=== PATIENT | male | born 1970 | race Caucasian/White ===

== ENCOUNTER 2021-07-09 10:23 | Day surgery (SDC) | payer BC ==
[~2021-07-09 10:23] MED LIST: Lactated Ringers 1,000 ML IV SCH; Lidocaine 2% 5 ML SDV ONE; Ondansetron 4 MG/2 ML SDV ONE; fentaNYL 100 MCG/2 ML SDV ONE; propofoL 100 ML ONE
--- NOTE | 2021-07-09 11:32 | PCM.PREANE ---
Preanesthetic Assessment - Anesthesia/Transfusion/Family Hx Anesthesia History: Prior Anesthesia Without Reaction Transfusion History: No Prior Transfusion(s) - Review of Systems General: No Symptoms Pulmonary: No Symptoms Cardiovascular: No Symptoms Gastrointestinal: No Symptoms Neurological: No Symptoms Other: Reports: None - Physical Assessment NPO Status Date: 07/09/21 NPO Status Time: 00:00 Vital Signs: Last Vital Signs Temp 97.7 F 07/09/21 10:48 Pulse 66 07/09/21 10:48 Resp 15 07/09/21 10:48 BP 173/90 H 07/09/21 10:48 Pulse Ox 95 07/09/21 10:48 Height: 6 ft 1 in Weight: 196 lb ASA Class: 2 Mental Status: Alert & Oriented x3 Airway Class: Mallampati = 2 Dentition: Reports: Normal Dentition ROM/Head Extension: Full Lungs: Clear to Auscultation, Normal Respiratory Effort Cardiovascular: Regular Rate, Regular Rhythm - Allergies Allergies/Adverse Reactions: Allergies Allergy/AdvReac Type Severity Reaction Status Date / Time No Known Allergies Allergy Verified 07/04/21 13:48 - Acknowledgements Anesthesia Type Planned: General Anesthesia Pt an Appropriate Candidate for the Planned Anesthesia: Yes Alternatives and Risks of Anesthesia Discussed w Pt/Guardian: Yes Pt/Guardian Understands and Agrees with Anesthesia Plan: Yes PreAnesthesia Questionnaire HEENT History: Reports: Other (See Below) Other HEENT History: wears glasses, hx of fx nose Cardiovascular History: Reports: High Cholesterol Respiratory History: Reports: None Gastrointestinal History: Reports: GERD Genitourinary History: Reports: None Musculoskeletal History: Reports: Fracture Other Musculoskeletal History: hx of fx fingers Neurological History: Reports: None Psychiatric History: Reports: Anxiety Endocrine/Metabolic History: Reports: None Hematologic History: Reports: None Immunologic History: Reports: None Oncologic (Cancer) History: Reports: None Dermatologic History: Reports: None - Past Surgical History Head Surgeries/Procedures: Reports: None HEENT Surgical History: Reports: None Cardiovascular Surgical History: Reports: None Respiratory Surgical History: Reports: None GI Surgical History: Reports: None Male Surgical History: Reports: None Endocrine Surgical History: Reports: None Neurological Surgical History: Reports: None Musculoskeletal Surgical History: Reports: Arthroscopic Knee Other Musculoskeletal Surgeries/Procedures:: right ACL repair- has 1 screw - SUBSTANCE USE Tobacco Use Status *Q: Current Every Day Tobacco User Tobacco Use Within Last Twelve Months: Vaping Recreational Drug Use History: No - HOME MEDS Home Medications: Home Meds Famotidine 20 mg PO BID 07/04/21 [History] Venlafaxine HCl [Venlafaxine HCl ER] 75 mg PO DAILY 07/04/21 [History] atorvaSTATin Calcium [Atorvastatin Calcium] 40 mg PO DAILY 07/04/21 [History] - CURRENT (IN HOUSE) MEDS Current Meds: Current Medications Lactated Ringer's (Ringers, Lactated) 1,000 mls @ 125 mls/hr IV ASDIRECTED [facility] Last Admin: 07/09/21 11:00 Dose: 125 mls/hr Documented by: Discontinued Medications Fentanyl (Fentanyl 100 Mcg/2 Ml Sdv) Confirm Administered Dose 100 mcg .ROUTE .STK-MED ONE Stop: 07/09/21 10:10 Propofol (Diprivan 100 Ml) Confirm Administered Dose 100 mls @ as directed .ROUTE .STK-MED ONE Stop: 07/09/21 10:10 Lidocaine (Lidocaine 2% 5 Ml Sdv) Confirm Administered Dose 5 ml .ROUTE .STK-MED ONE Stop: 07/09/21 10:10 Ondansetron HCl (Ondansetron 4 Mg/2 Ml Sdv) Confirm Administered Dose 4 mg .ROUTE .STK-MED ONE Stop: 07/09/21 10:10
[2021-07-09] MEDS ORDERED: Dexamethasone 4 MG/ML 5 ML MDV ONE (12:43)
[2021-07-09] MEDS ORDERED: Ondansetron 4 MG/2 ML SDV ONE (12:43)
--- NOTE | 2021-07-09 13:14 | PCM48HPAN ---
Post Anesthesia Note - EVALUATION WITHIN 48HRS OF ANESTHETIC Vital Signs in Normal Range: Yes Patient Participated in Evaluation: Yes Respiratory Function Stable: Yes Airway Patent: Yes Cardiovascular Function Stable: Yes Hydration Status Stable: Yes Pain Control Satisfactory: Yes Nausea and Vomiting Control Satisfactory: Yes Mental Status Recovered: Yes Vital Signs: Last Vital Signs Temp 97.7 F 07/09/21 10:48 Pulse 66 07/09/21 10:48 Resp 15 07/09/21 10:48 BP 173/90 H 07/09/21 10:48 Pulse Ox 95 07/09/21 10:48
--- NOTE | 2021-07-09 13:14 | PCM.POSTAN ---
POST ANESTHESIA ASSESSMENT - MENTAL STATUS Mental Status: Alert, Oriented - VITAL SIGNS Vital Signs: Last Vital Signs Temp 97.7 F 07/09/21 10:48 Pulse 66 07/09/21 10:48 Resp 15 07/09/21 10:48 BP 173/90 H 07/09/21 10:48 Pulse Ox 95 07/09/21 10:48 - RESPIRATORY Respiratory Status: Respiratory Rate WNL, Airway Patent, O2 Saturation Stable - CARDIOVASCULAR CV Status: Pulse Rate WNL, Blood Pressure Stable - GASTROINTESTINAL GI Status: No Symptoms - POST OP HYDRATION Hydration Status: Adequate & Stable
--- NOTE | 2021-07-09 13:15 | PCM.OPNOTE ---
- General Post-Op/Procedure Note Date of Surgery/Procedure: 07/09/21 Operative Procedure(s): EGD with biopsies. Colonscopy with biopsies and polypectomies Findings: Gastritis Esophagitis colon polyps Submucosal mass in cecum dictation number [id number] Pre Op Diagnosis: abdominal pain. screening colonoscopy Post-Op Diagnosis: Gastritis. Esophagitis. colon polyps. Submucosal mass in cecum Primary Surgeon: Elkin Barahona Complications: None Condition: Good
--- NOTE | 2021-07-10 08:13 | OR ---
SURGEON: LUIS GASTELUM MD DATE OF PROCEDURE: 07/09/2021 PREOPERATIVE DIAGNOSES: Abdominal pain and cramping along with nausea and vomiting. POSTOPERATIVE DIAGNOSES: 1. Gastritis. 2. Esophagitis. 3. Colon polyps. 4. Submucosal mass in the cecum at the appendix orifice, could potentially be a lipoma. PROCEDURES PERFORMED: 1. Esophagogastroduodenoscopy with biopsies. 2. Colonoscopy with biopsies and polypectomy. PRIMARY SURGEON: Luis Gastelum MD ANESTHESIA: With anesthesiologist. EXTENT OF EGD: To the duodenum. EXTENT OF COLONOSCOPY: To the terminal ileum. BOWEL PREP: Very good. LIMITATIONS: None. REASON FOR PROCEDURE: The patient is a pleasant 51-year-old gentleman. He has never had a colonoscopy before. He denies any family history of colon cancer. Denies any blood in the stool. The patient also says he has flare-ups of abdominal pain over the last couple of years. He will get loose stools, abdominal cramping along with bloating. He says he was diagnosed with gluten intolerance in the past. He has taken some Pepcid and says that seems to help. The patient also has some nausea and emesis. PROCEDURE IN DETAIL: Physical examination was performed. The major risks and benefits associated with the procedure were explained to the patient in detail. The patient verbalized understanding and agreement of the same. The patient was then connected to the appropriate monitoring device and IV started. EKG, pulse, pulse oximetry, blood pressure, and capnography were monitored throughout the entire procedure. Continuous oxygen and sedation were provided by the anesthesiologist. The patient was placed in left lateral decubitus position. Sedation was began. After adequate sedation was achieved, an upper endoscope was advanced under direct visualization without difficulty in the upper GI tract. The anatomy and mucosa of the esophagus, GE junction, stomach, pylorus, and duodenum were all inspected. Duodenum appeared normal. We did do biopsies in the duodenum because of history of gluten intolerance. The scope was brought back to the stomach. Both retro and antegrade views of the stomach were done. The patient did have looked like some old punctated areas of bleeding. Nothing was actively bleeding though mainly in the antrum and some gastritis mainly again in the stomach. Biopsies were done of the antrum and pylorus area to check for H pylori. Scope was brought to the GE junction. GE junction was approximately 43 cm from the incisors. The patient had irregular GE junction what looks like maybe some esophagitis that looks like it is on the healing aspect. Did do several 4-quadrant biopsies of this area. Scope was brought into the stomach. Stomach was deinsufflated. Scope was brought up to the GE junction. Good hemostasis. Esophagus appeared normal and the scope was removed. Gloves and scopes were changed. Now, rectal exam was done. No rectal masses or polyps were felt. Now, a well- lubricated Olympus colonoscope was inserted in the rectum, advanced under direct visualization to the level of the cecum. The cecum was identified by both visual and anatomic landmarks. The patient did have somewhat torturous sigmoid that required a little bit of sigmoid pressure, but we were able to intubate the cecum. The cecum was intubated. The patient did have what looked to be submucosal mass right where the appendix orifice would be. Potentially some type of lipoma. The mucosa appeared normal, we did do multiple biopsies. Terminal ileum was inspected. This appeared normal. Did biopsies. Scope was withdrawn. The patient does have minimal liquid stool, which was suctioned and irrigated out for a good look at the mucosa. The patient did have a larger polyp that was on a nice stalk at about 20 cm. This was removed with hot snare polypectomy. The polyp was too large to suction, so it was taken out. The scope was readvanced to the polypectomy site. Mucosal edges were then reapproximated. The scope was continued to be withdrawn. The patient had a small polyp in the rectum. This was removed with a cold biopsy polypectomy. Good hemostasis. Scope was then completely removed and the procedure was terminated. ENDOSCOPIC DIAGNOSES: 1. Gastritis. 2. Esophagitis. 3. Colon polyps. 4. Submucosal mass in the cecum. RECOMMENDATIONS: The patient will follow up in clinic to go over his pathology. Although, the patient should consider switching to a PPI, that might help with his esophagitis and gastritis. Followup colonoscopy will depend on pathology. May consider potentially a CT scan to further evaluate that submucosal lesion in the cecum. IWONA / LORAINE /[id number]
== END 2021-07-09 14:00 | disposition home or self-care (01) ==
LOC: MW.SDS 10:23
PROVIDERS: ATTEND Surgery
DX: D12.8 Benign neoplasm of rectum (principal); D12.6 Benign neoplasm of colon, unspecified; D17.5 Benign lipomatous neoplasm of intra-abdominal organs; K29.50 Unspecified chronic gastritis without bleeding; K20.90 Esophagitis, unspecified without bleeding; E78.5 Hyperlipidemia, unspecified; E78.00 Pure hypercholesterolemia, unspecified; F17.210 Nicotine dependence, cigarettes, uncomplicated; Z79.899 Other long term (current) drug therapy
CPT/HCPCS: 43239; 45380; 45385; 88305; 88342; J1100; J2405; J2704; J3010; J7120; 00813

== ENCOUNTER 2021-10-29 06:43 | Day surgery (SDC) | payer BC ==
[~2021-10-29 06:43] MED LIST changes: +Acetaminophen 1,000 MG in Premix Bag 1 BAG IV PRN; -Lactated Ringers 1,000 ML IV SCH; -Lidocaine 2% 5 ML SDV ONE; -Ondansetron 4 MG/2 ML SDV ONE; +Pregabalin 75 MG Cap ONE; -fentaNYL 100 MCG/2 ML SDV ONE; -propofoL 100 ML ONE
--- NOTE | 2021-10-29 07:28 | PCM.PREANE ---
Preanesthetic Assessment - Anesthesia/Transfusion/Family Hx Anesthesia History: Prior Anesthesia Without Reaction Transfusion History: No Prior Transfusion(s) - Review of Systems General: No Symptoms Pulmonary: No Symptoms Cardiovascular: No Symptoms Gastrointestinal: No Symptoms Neurological: No Symptoms Other: Reports: None - Physical Assessment NPO Status Date: 10/29/21 NPO Status Time: 00:00 Height: 6 ft 1 in Weight: 204 lb ASA Class: 2 Mental Status: Alert & Oriented x3 Airway Class: Mallampati = 1 Dentition: Reports: Normal Dentition ROM/Head Extension: Full Lungs: Clear to Auscultation, Normal Respiratory Effort Cardiovascular: Regular Rate, Regular Rhythm - Allergies Allergies/Adverse Reactions: Allergies Allergy/AdvReac Type Severity Reaction Status Date / Time No Known Allergies Allergy Verified 10/28/21 09:47 - Acknowledgements Anesthesia Type Planned: General Anesthesia Pt an Appropriate Candidate for the Planned Anesthesia: Yes Alternatives and Risks of Anesthesia Discussed w Pt/Guardian: Yes Pt/Guardian Understands and Agrees with Anesthesia Plan: Yes PreAnesthesia Questionnaire HEENT History: Reports: Other (See Below) Other HEENT History: wears glasses, hx of fx nose Cardiovascular History: Reports: High Cholesterol, Hypertension Respiratory History: Reports: None Gastrointestinal History: Reports: Colon Polyp Genitourinary History: Reports: None Musculoskeletal History: Reports: Fracture Other Musculoskeletal History: hx of fx fingers Neurological History: Reports: None Psychiatric History: Reports: Anxiety Endocrine/Metabolic History: Reports: None Hematologic History: Reports: None Immunologic History: Reports: None Oncologic (Cancer) History: Reports: None Dermatologic History: Reports: None - Past Surgical History Head Surgeries/Procedures: Reports: None HEENT Surgical History: Reports: None Cardiovascular Surgical History: Reports: None Respiratory Surgical History: Reports: None GI Surgical History: Reports: Colonoscopy, EGD Male Surgical History: Reports: None Endocrine Surgical History: Reports: None Neurological Surgical History: Reports: None Musculoskeletal Surgical History: Reports: Arthroscopic Knee Other Musculoskeletal Surgeries/Procedures:: right ACL repair Oncologic Surgical History: Reports: None - SUBSTANCE USE Tobacco Use Within Last Twelve Months: Vaping - HOME MEDS Home Medications: Home Meds Famotidine 20 mg PO BID 07/04/21 [History] Venlafaxine HCl [Venlafaxine HCl ER] 75 mg PO DAILY 07/04/21 [History] atorvaSTATin Calcium [Atorvastatin Calcium] 40 mg PO DAILY 07/04/21 [History] amLODIPine [Norvasc] 5 mg PO DAILY 10/28/21 [History] - CURRENT (IN HOUSE) MEDS Current Meds: Current Medications Cefoxitin Sodium 2 gm/ Premix 50 mls @ 100 mls/hr IV ONETIME ONE Stop: 10/29/21 10:50 Acetaminophen 1,000 mg/ Premix 100 mls @ 400 mls/hr IV ONETIME PRN PRN Reason: PAIN Lactated Ringer's (Ringers, Lactated) 1,000 mls @ 125 mls/hr IV ASDIRECTED [facility] Pregabalin (Pregabalin 75 Mg Cap) 150 mg PO ONETIME ONE Stop: 10/29/21 10:22 Discontinued Medications Pregabalin (Pregabalin 75 Mg Cap) Confirm Administered Dose 150 mg .ROUTE .STK- MED ONE Stop: 10/29/21 06:42
[2021-10-29] MEDS ORDERED: Metoclopramide 10 MG/2 ML SDV IVPUSH PRN (07:29)
[2021-10-29] MEDS ORDERED: Bupivacaine 0.5% 30 ML SDV ONE (07:29)
[2021-10-29] MEDS ORDERED: Albuterol 0.083% 2.5 MG/3 ML Neb Soln NEB PRN (07:29)
[2021-10-29] MEDS ORDERED: Naloxone 0.4 MG/ML SDV IVPUSH PRN (07:29)
[2021-10-29] MEDS ORDERED: Morphine 2 MG/ML SYRINGE IVPUSH PRN (07:29)
[2021-10-29] MEDS ORDERED: HYDROmorphone 1 MG/ML Syringe IVPUSH PRN (07:29)
[2021-10-29] MEDS ORDERED: fentaNYL 100 MCG/2 ML SDV IVPUSH PRN (07:29)
[2021-10-29] MEDS ORDERED: Ondansetron 4 MG/2 ML SDV IVPUSH PRN (07:29)
[2021-10-29] MEDS ORDERED: Octyl 2-Cyanoacrylate 1 Tube ONE (07:29)
[2021-10-29] MEDS ORDERED: Famotidine 20 MG/2 ML SDV ONE (07:32)
[2021-10-29] MEDS ORDERED: Acetaminophen 1,000 MG in Premix Bag 1 BAG IV PRN (07:34)
[2021-10-29] MEDS ORDERED: fentaNYL 250 MCG/5 ML SDV ONE ×2 (07:36→08:22)
[2021-10-29] MEDS ORDERED: Propofol 200 MG/20 ML SDV ONE ×2 (07:36→09:27)
[2021-10-29] MEDS ORDERED: Lactated Ringers 1,000 ML IV SCH ×2 (07:45→10:30)
[2021-10-29] MEDS ORDERED: cefOXitin 2 GM in Premix Bag 1 BAG IV ONE ×2 (07:45→10:21)
[2021-10-29] MEDS ORDERED: Pregabalin 75 MG Cap PO ONE ×2 (07:45→10:21)
[2021-10-29] MEDS ORDERED: Indocyanine Green 25 MG SDV ONE (07:58)
--- NOTE | 2021-10-29 09:40 | PCM.OPNOTE ---
- General Post-Op/Procedure Note Date of Surgery/Procedure: 10/29/21 Operative Procedure(s): Laparoscopic cholecystectomy Findings: Fatty gallbladder with some adhesions Normal appearing appendix dictation number [id number] Pre Op Diagnosis: Biliary dyskinesia Post-Op Diagnosis: Biliary dyskinesia Anesthesia Technique: General ET Tube Primary Surgeon: Elkin Barahona Pathology: gallbladder EBL in mLs: 5 Complications: None Condition: Good
--- NOTE | 2021-10-29 09:48 | PCM.POSTAN ---
POST ANESTHESIA ASSESSMENT - MENTAL STATUS Mental Status: Alert, Oriented - VITAL SIGNS Vital Signs: Last Vital Signs Temp 37.1 C 10/29/21 09:40 Pulse 82 10/29/21 09:46 Resp 13 10/29/21 09:46 BP 165/100 H 10/29/21 09:46 Pulse Ox 97 10/29/21 09:46 - RESPIRATORY Respiratory Status: Respiratory Rate WNL, Airway Patent, O2 Saturation Stable - CARDIOVASCULAR CV Status: Pulse Rate WNL, Blood Pressure Stable - GASTROINTESTINAL GI Status: No Symptoms - POST OP HYDRATION Hydration Status: Adequate & Stable
--- NOTE | 2021-10-29 09:49 | PCM48HPAN ---
Post Anesthesia Note - EVALUATION WITHIN 48HRS OF ANESTHETIC Vital Signs in Normal Range: Yes Patient Participated in Evaluation: Yes Respiratory Function Stable: Yes Airway Patent: Yes Cardiovascular Function Stable: Yes Hydration Status Stable: Yes Pain Control Satisfactory: Yes Nausea and Vomiting Control Satisfactory: Yes Mental Status Recovered: Yes Vital Signs: Last Vital Signs Temp 37.1 C 10/29/21 09:40 Pulse 82 10/29/21 09:46 Resp 13 10/29/21 09:46 BP 165/100 H 10/29/21 09:46 Pulse Ox 97 10/29/21 09:46
--- NOTE | 2021-10-29 13:17 | OR ---
SURGEON: LUIS GASTELUM MD DATE OF PROCEDURE: 10/29/2021 PREOPERATIVE DIAGNOSIS: Biliary dyskinesia. POSTOPERATIVE DIAGNOSIS: Biliary dyskinesia. PROCEDURE PERFORMED: Laparoscopic cholecystectomy. SPECIMEN: Gallbladder. ESTIMATED BLOOD LOSS: 5 mL. PRIMARY SURGEON: Luis Gastelum MD COMPLICATIONS: None. REASON FOR PROCEDURE: The patient is a pleasant 51-year-old gentleman who has been having issues with abdominal pain for several years. He says he gets flare-ups of epigastric pain with nausea, vomiting, diarrhea. The patient did an ultrasound which showed no gallstones. We did a HIDA scan which showed a low ejection fraction along with recreation of his symptoms. Feel the patient likely has biliary dyskinesia. I went over risks, goals, and alternatives of procedure. Risks include, but not limited to bleeding, infection, bile leak, injury to nearby structures such as duodenum or common bile duct, change of bowel habits, hernia formation, this could be something other than cholecystectomy. The patient understands. On his workup, the patient was also found to have a slightly dilated appendix. I would like to look at it. I did go over that if it looks abnormal, then we would potentially move it, otherwise we will leave it alone. I did go over the risks and goals of this also. PROCEDURE IN DETAIL: The patient was brought back to the OR. He was prepped and draped in usual sterile fashion. SCDs placed. Preoperative antibiotics given and anesthesia provided by the anesthesia team. Time-out was performed. An infraumbilical incision was made down to the fascia. Two stay sutures were placed with 0 Vicryl. The abdomen was entered in an open Jt technique and a 12 mm trocar was placed. Now, the pneumoperitoneum was established. Three more 5 mm trocars were placed; one in the midepigastric, one in the right upper quadrant, and one in the right lower abdomen under direct visualization. The patient was placed in a head-up position and airplaned toward myself. The fundus of the gallbladder was grasped and elevated. The patient did have adhesion of the omentum to the gallbladder, it was taken down with the Harmonic scalpel. The cystic duct and cystic artery were slowly dissected out. The patient did have quite a bit of fat around the infundibulum of the gallbladder which again was carefully dissected away. This was mainly done with blunt dissection. We did get a good critical view with the cystic duct and cystic artery. The patient did have indocyanine green which showed good cystic duct. Bolus of indocyanine green was given which showed light up of the cystic artery. After good identification of the gallbladder anatomy, the cystic duct and cystic artery were clipped and transected. The gallbladder was then taken off the fossa with Harmonic scalpel. No other tubular structures were encountered. The gallbladder was then removed in EndoCatch bag. Did look at the operative site, the clips appeared to be in good position. There was good hemostasis. Now, the patient was flattened, placed in slightly head-down position. I did identify the appendix. The appendix actually looked normal. No real signs of inflammation, induration, or masses. Given this, I left the appendix alone. Now, the pneumoperitoneum was released and the 5 mm trocars were removed under direct visualization. The 12 mm trocar was removed and the fascial defect was closed with 0 Vicryl [id number] stitch. Now, the 2 stay sutures were also tied together. Now, the rest of the local was injected in all the port sites and the port incisions were closed with 4-0 Monocryl and Dermabond. At the end of the case, sponge and needle counts were correct. The patient was transferred to recovery room in stable condition. IWONA BARON /[id number]
[2021-10-29] MEDS ORDERED: Sugammadex Sodium 200 MG/2 ML VIAL ONE (13:28)
[2021-10-29] MEDS ORDERED: ePHEDrine 50 MG/ML SDV ONE (13:28)
[2021-10-29] MEDS ORDERED: Rocuronium Bromide 50 MG/5 ML Syringe ONE (13:28)
[2021-10-29] MEDS ORDERED: Ondansetron 4 MG/2 ML SDV ONE (13:28)
[2021-10-29] MEDS ORDERED: cefOXitin 100 ML ONE (13:28)
[2021-10-29] MEDS ORDERED: Glycopyrrolate 0.2 MG/ML SDV ONE (13:28)
[2021-10-29] MEDS ORDERED: Dexamethasone 4 MG/ML 5 ML MDV ONE (13:28)
[2021-10-29] MEDS ORDERED: Ketorolac 30 MG/ML SDV ONE (13:28)
== END 2021-10-29 11:25 | disposition home or self-care (01) ==
LOC: MW.SDS 06:43
PROVIDERS: ATTEND Surgery
DX: K81.1 Chronic cholecystitis (principal); K82.8 Other specified diseases of gallbladder; D13.5 Benign neoplasm of extrahepatic bile ducts; F41.9 Anxiety disorder, unspecified; E78.00 Pure hypercholesterolemia, unspecified; I10 Essential (primary) hypertension; Z79.899 Other long term (current) drug therapy; Z98.890 Other specified postprocedural states; Z87.891 Personal history of nicotine dependence
CPT/HCPCS: 47562; A9270; J0131; J0694; J1100; J1885; J2405; J2704; J3010; J3490; J7120; 00790

== ENCOUNTER 2022-07-21 09:29 | Emergency (ER) | payer BC ==
[2022-07-21] MEDS ORDERED: Aspirin 81 MG Tab.Chew PO ONE (09:33)
[2022-07-21 10:28] LABS: CARBON DIOXIDE,CO2 29.7 mmol/L (21.0-32.0); POTASSIUM,K 3.9 mmol/L (3.5-5.1)
[2022-07-21] MEDS ORDERED: Ketorolac 30 MG/ML SDV IVPUSH ONE (10:48)
== END 2022-07-21 11:10 | disposition home or self-care (01) ==
LOC: MW.ED 09:29
DX: M94.0 Chondrocostal junction syndrome [Tietze] (principal); Z20.822 Contact with and (suspected) exposure to COVID-19; I10 Essential (primary) hypertension; E78.00 Pure hypercholesterolemia, unspecified; Z79.899 Other long term (current) drug therapy
CPT/HCPCS: 36415; 71045; 80053; 84484; 85025; 87635; 93005; 96374; 99285; A9270; J1885; U0002

== ENCOUNTER 2023-01-11 17:44 | Emergency (ER) | payer OTHER, BC ==
[~2023-01-11 17:44] MED LIST changes: -Acetaminophen 1,000 MG in Premix Bag 1 BAG IV PRN; +Haloperidol Lactate 5 MG/ML SDV ONE; +LORazepam 2 MG/ML SDV ONE; -Pregabalin 75 MG Cap ONE
[2023-01-11] MEDS ORDERED: Diphtheria,Pertussis(Acell),Tetanus Vaccine 0.5 ML Syringe IM ONE (17:45)
[2023-01-11] MEDS ORDERED: Lidocaine 1% PF 2 ML SDV INJECT ONE (18:03)
[2023-01-11 18:26] LABS: BLOOD UREA NITROGEN,BUN 12 mg/dL (7.0-18.0); CARBON DIOXIDE,CO2 27.3 mmol/L (21.0-32.0); CHLORIDE,CL 108 mmol/L (98-107); GLUCOSE RANDOM 87 mg/dL (74-106); POTASSIUM,K 3.8 mmol/L (3.5-5.1); SODIUM,NA 146 mmol/L (136-148)
[2023-01-11 18:27] LABS: ESTIMATED GFR 101 mL/min (>60)
== END 2023-01-11 18:42 ==
LOC: MW.ED 17:44
DX: S01.112A Laceration without foreign body of left eyelid and periocular area, initial encounter (principal); F10.129 Alcohol abuse with intoxication, unspecified; E78.00 Pure hypercholesterolemia, unspecified; I10 Essential (primary) hypertension; Z79.899 Other long term (current) drug therapy; Y90.8 Blood alcohol level of 240 mg/100 ml or more; Z23 Encounter for immunization; V49.40XA Driver injured in collision with unspecified motor vehicles in traffic accident, initial encounter; Y92.410 Unspecified street and highway as the place of occurrence of the external cause
CPT/HCPCS: 12011; 36415; 70450; 70450-26; 80053; 80307; 82947; 83735; 85025; 90471; 90715; 99283; 99284-25; J3490